=== PATIENT | female | born 1985 | race Caucasian/White ===

== ENCOUNTER 2023-12-18 14:36 | Day surgery (SDC) | payer MEDICAID ==
[~2023-12-18] VITALS: Ht 162.6 cm; Wt 86.4 kg
[~2023-12-18 14:36] MED LIST: LR 1,000 ML IV SCH
--- NOTE | 2023-12-18 14:47 | NUR ---
PATIENT ADMITTED TO ROOM 8 AMBULATORY AND ORIENTED TO ROOM. CONSENTS SIGNED. WAIVER SIGNED FOR TEST REFUSAL. EXPLAINED TO PATIENT THAT ANESTHESIA COULD BE HARMFUL TO FETUS AND WISHES TO SIGN REFUSAL. IVF STARTED AND READIED FOR SURGERY.
[2023-12-18 15:12] VITALS: BP 130/80; PULSE 73; TEMP 98.2
[2023-12-18] MEDS ORDERED: LO LOESTRIN FE1 TAB PO (16:00)
[2023-12-18] MEDS ORDERED: VIIBRYD20 MG PO (16:01)
[2023-12-18] MEDS ORDERED: LAMICTAL XR50 MG PO (16:01)
[2023-12-18] MEDS ORDERED: ADDERALL20 MG PO (16:02)
[2023-12-18] MEDS ORDERED: TORADOL 10MG TA10 MG PO (16:03)
[2023-12-18] MEDS ORDERED: NORCO 325 MG-51 TAB PO (16:03)
[2023-12-18] MEDS ORDERED: Iohexol 300 - 10 ML VIAL URETER-R ONE (18:07)
[2023-12-18] MEDS ORDERED: Lidocaine PF 2% (20 MG/ML) 5 ML VIAL ONE (18:18)
[2023-12-18] MEDS ORDERED: Ondansetron 4 MG/2 ML VIAL ONE (18:18)
[2023-12-18] MEDS ORDERED: dexAMETHasone 10 MG/ML VIAL ONE (18:18)
[2023-12-18] MEDS ORDERED: Lidocaine 2% (20 MG/ML) 20 ML UROJET UR ONE (18:24)
[2023-12-18] MEDS ORDERED: Acetaminophen 325 MG TAB PO PRN (18:30)
[2023-12-18] MEDS ORDERED: Naloxone 0.4 MG/ML VIAL IV PRN (18:30)
[2023-12-18] MEDS ORDERED: Ondansetron 4 MG/2 ML VIAL IV PRN ×2 (18:30→18:45)
[2023-12-18] MEDS ORDERED: Hyoscyamine 0.125 MG Sublingual TAB SL PRN (18:30)
[2023-12-18] MEDS ORDERED: hydrALAZINE 20 MG/ML 1 ML VIAL IV PRN (18:45)
[2023-12-18] MEDS ORDERED: fentaNYL 50 MCG/ML 1 ML SYRINGE/VIAL [PACU/SDC ONLY] IV PRN (18:45)
[2023-12-18] MEDS ORDERED: HYDROmorphone 1 MG/1 ML SYRINGE [PACU/SDC ONLY] IV PRN (18:45)
[2023-12-18 19:10] VITALS: BP 128/76; PULSE 64
[2023-12-18] MEDS ORDERED: Acetaminophen 500 MG TAB PO SCH (19:28)
[2023-12-18 19:35] VITALS: BP 111/67; PULSE 68; TEMP 97.8
--- NOTE | 2023-12-18 19:40 | NUR ---
PATIENT ARRIVED TO FLOOR AT 1910 FROM PACU. POST OP VITALS STARTED, PATIENT URINATED WHEN SHE ARRIVED. PATIENT REPORTS MIN. PAIN 2/10 NO PAIN MEDS GIVEN AT THIS TIME. WILL CONTINUE TO GET POST OP VITALS. PATIENT HAS DISCHARGE PAPERS READY AT THIS TIME, WILL CONTINUE TO MONITOR PATIENT THEN DISCHARGE PATIENT ORDERED.
--- NOTE | 2023-12-18 21:10 | NUR ---
THE PATIENT WAS PROVIDED THE DISCHARGE INSTRUCTIONS AND QUESTIONS AND CONCERNS WERE ANSWERED. THE PTS PIV WAS REMOVED PRIOR TO DISCHARGE. THE PATIENT DENIED [facility] HOLDING ANY PERSONAL BELONGINGS TO INCLUDE MEDICATIONS. THE PTS VITAL SIGNS WERE STABLE UP DISCHARGE AND THE PATIENT AMBULATED WITH A STEADY GAIT ALONG WITH FAMILY TO THE ED EXIT. THE PATIENT HAD EATEN, DRANK AND VOIDED PRIOR TO DISCHARGE. NO N/V NOTED.
== END 2023-12-18 21:07 | disposition home or self-care (01) ==
LOC: SDCO 14:36 → SURG 19:10 → SDCO 21:07 → SURG 21:07
DX: N20.1 Calculus of ureter (principal)
CPT/HCPCS: OP; C1769; J0690; J1100; J2405; J2704; J7120; Q9967